=== PATIENT | female | born 1970 | race Two or more races ===

== ENCOUNTER 2025-03-18 06:00 | Day surgery (SDC) | payer OTHER ==
[2025-03-11 09:04] LABS: URINE APPEARANCE Clear; URINE BILIRRUBIN Negative (NEGATIVE); URINE BLOOD Negative; URINE COLOR Yellow; URINE GLUCOSE Negative (NEGATIVE); URINE KETONE Negative (NEGATIVE); URINE LEUKOCYTE Negative; URINE NITRATE Negative; URINE PROTEIN Negative (NEGATIVE); URINE UROBILINOGEN 0.2 E.U./dl
[2025-03-11 09:08] LABS: URINE BACTERIA 4.7 uL (0.0-1933); URINE EPITHELIAL CELLS 2.2 uL (0.0-38.8); URINE WBC 3.6 uL (0.0-23.2)
[2025-03-11 09:20] LABS: URINE CAST 0.00 uL (0.0-1.40); URINE RBC 1.6 uL (0.0-20.8)
[2025-03-11 09:39] LABS: INR 1.02
[2025-03-11 09:48] LABS: BUN CREA RATIO 22.0 (7.0-25.0); CREATININE SERUM 0.59 mg/dL (0.55-1.02); GFR 105.06; GLUCOSE FASTING 97.0 mg/dL (65-100); OSMOLALITY SERUM 281.0 MOSM/KG (275-295)
[2025-03-11 09:58] VITALS: BP 104/69
[2025-03-11 10:37] LABS: BASO % 1.3 % (0.1-1.2); EOS # 0.19 (0.04-0.54); EOS % 4.8 % (0.7-7.0); LYMPH # 1.41 (1.18-3.74); LYMPH % 35.6 % (19.3-53.1); MEAN PLATELET VOLUME 13.80 fl (9.4-12.4); MONO # 0.32 (0.24-0.82); MONO % 8.1 % (4.7-12.5); NEUT # 1.98 (1.56-6.13); NEUT % 49.9 % (34.0-71.1); RED CELL DISTRIBUTION WIDTH 13.2 % (11.6-14.4)
[~2025-03-18] VITALS: Ht 165.1 cm; Wt 65.8 kg
[~2025-03-18 06:00] MED LIST: ANASTROZOLE1 MG; SIMVASTATIN5 MG
[2025-03-18] MEDS ORDERED: CLINDAMYCIN PHOSPHATE 150 MG/ML (900mg) ONE (07:15)
[2025-03-18] MEDS ORDERED: POVIDONE-IODINE 118 ML BOTT TOP ONE (08:44)
[2025-03-18] MEDS ORDERED: LIDOCAINE HCL 1%/EPINEPHRINE 20ML VIAL IJ ONE ×2 (08:45→08:48)
[2025-03-18] MEDS ORDERED: POVIDONE-IODINE SCRUB 118 ML BOTT TOP ONE (08:45)
[2025-03-18] MEDS ORDERED: TRANEXAMIC ACID 100MG/1ML (1000MG) AMPUL ONE (08:48)
[2025-03-18] MEDS ORDERED: CEFAZOLIN SODIUM 1,000 MG VIAL IM ONE (12:45)
[2025-03-18] MEDS ORDERED: TRANEXAMIC ACID 100MG/1ML (1000MG) AMPUL IV ONE (12:45)
[2025-03-18] MEDS ORDERED: SUGAMMADEX SODIUM 200 MG/2 ML VIAL IV ONE (13:11)
[2025-03-18] MEDS ORDERED: ONDANSETRON HCL 2 MG/ML VIAL IV PRN (13:30)
[2025-03-18] MEDS ORDERED: MORPHINE SULFATE 4 MG/ML VIAL IV PRN (13:30)
[2025-03-18] MEDS ORDERED: MORPHINE SULFATE 4 MG/ML VIAL IV ONE (14:45)
== END 2025-03-18 16:35 | disposition home or self-care (01) ==
LOC: CIR.AMB 06:00
PROVIDERS: ATTEND Plastic Surgery
DX: N65.1 Disproportion of reconstructed breast (principal); Z90.11 Acquired absence of right breast and nipple; C50.811 Malignant neoplasm of overlapping sites of right female breast